=== PATIENT | male | born 1975 | race Caucasian/White ===

== ENCOUNTER 2017-03-26 14:56 | Emergency (ER) | payer OTHER ==
[~2017-03-26] VITALS: Ht 182.9 cm; Wt 113.4 kg
== END 2017-03-26 15:15 | disposition home or self-care (01) ==
LOC: ED 14:56
DX: Z00.8 Encounter for other general examination (principal)

== ENCOUNTER 2020-01-15 12:33 | Emergency (ER) | payer OTHER, BC ==
[~2020-01-15] VITALS: Ht 182.9 cm; Wt 113.4 kg
[2020-01-15] MEDS ORDERED: LISINOPRIL-HCT1 EACH PO (12:48)
[2020-01-15] MEDS ORDERED: OMEPRAZOLE40 MG PO (12:48)
== END 2020-01-15 13:10 | disposition home or self-care (01) ==
LOC: ED 12:33
DX: H57.11 Ocular pain, right eye (principal)
CPT/HCPCS: 99282

== ENCOUNTER 2020-03-05 23:09 | Emergency (ER) | payer BC ==
[~2020-03-05] VITALS: Ht 182.9 cm; Wt 113.4 kg
[~2020-03-05 23:09] MED LIST: LISINOPRIL-HCT1 EACH PO; OMEPRAZOLE40 MG PO
== END 2020-03-06 00:34 | disposition short-term general hospital (02) ==
LOC: ED 23:09
DX: S39.840A Fracture of corpus cavernosum penis, initial encounter (principal); X58.XXXA Exposure to other specified factors, initial encounter; J45.909 Unspecified asthma, uncomplicated; Z79.899 Other long term (current) drug therapy
CPT/HCPCS: 99284

== ENCOUNTER 2020-07-26 08:15 | Emergency (ER) | payer OTHER, BC ==
[~2020-07-26] VITALS: Ht 182.9 cm; Wt 111.1 kg
[2020-07-26] MEDS ORDERED: HYDROCODON-ACE1 EA10 PO (09:44)
== END 2020-07-26 09:52 | disposition home or self-care (01) ==
LOC: ED 08:15
DX: M54.5 Low back pain (principal); J45.909 Unspecified asthma, uncomplicated; Z87.891 Personal history of nicotine dependence; Z79.899 Other long term (current) drug therapy
CPT/HCPCS: 99283

== ENCOUNTER 2021-11-15 02:56 | Emergency (ER) | payer BC ==
[~2021-11-15] VITALS: Ht 182.9 cm; Wt 115.1 kg
[~2021-11-15 02:56] MED LIST changes: +HYDROCODON-ACE1 EA10 PO
--- NOTE | 2021-11-16 18:17 | EKG ---
[facility] [address] [place], [place] [address] Signed Normal sinus rhythm Normal ECG No previous ECGs available Confirmed by JYOTI HERRERA MD ([id number] on 11/16/2021 6:17:20 PM Electronically Signed By: JYOTI HERRERA MD 11/16/211816 PATIENT NAME: FABIÁN VELEZ Electrocardiogram DATE OF : 77 PHYSICIAN: JYOTI HERRERA MD REPORT #: [id number] REPORT IS CONFIDENTIAL AND NOT TO BE RELEASED WITHOUT AUTHORIZATION
== END 2021-11-15 05:46 | disposition home or self-care (01) ==
LOC: ED 02:56
DX: R07.89 Other chest pain (principal); I10 Essential (primary) hypertension; J45.909 Unspecified asthma, uncomplicated; Z87.891 Personal history of nicotine dependence; Z79.899 Other long term (current) drug therapy
CPT/HCPCS: 36415; 71045; 80053; 83735; 84484; 85025; 93005; 93010; A9270

== ENCOUNTER 2023-04-13 23:45 | Emergency (ER) | payer SELFPAY ==
[~2023-04-13] VITALS: Ht 182.9 cm; Wt 121.7 kg
[2023-04-14 00:09] VITALS: BP 149/95
== END 2023-04-14 00:09 | disposition home or self-care (01) ==
LOC: ED 23:45
DX: H60.92 Unspecified otitis externa, left ear (principal); I10 Essential (primary) hypertension; J45.909 Unspecified asthma, uncomplicated; Z87.891 Personal history of nicotine dependence; Z79.899 Other long term (current) drug therapy
CPT/HCPCS: 99282; A9270